=== PATIENT | male | born 1995 | race Caucasian/White ===

== ENCOUNTER 2021-04-19 15:10 | Emergency (ER) | payer SELFPAY ==
[2021-04-19 15:11] VITALS: BP 155/99; PULSE 107; RESP 16; TEMP 36.9; O2SAT 97; BMI 32.3
[2021-04-19 15:45] VITALS: BP 155/99; PULSE 107; RESP 16; TEMP 36.9; O2SAT 97; BMI 32.1
--- NOTE | 2021-04-19 16:20 | HMH.EDUTC ---
[facility] [place]ression: Vomiting and diarrhea Disposition: Home, Self-Care Condition on Discharge: Good Instructions: Diarrhea, Nausea and Vomiting-Adult Additional Instructions: Drink extra fluids with and between meals. If you have difficulty drinking, try very small amounts of water or suck on ice chips. ? Avoid fruit juices, as these do not replace minerals and can actually increase diarrhea. ? Children and adults can use sports drinks to replenish electrolytes. Younger children and infants should use products formulated for children, like oral rehydration solutions. ? Eat food in small amounts and let your stomach recover. ? Get lots of rest. You may feel tired or weak. ? No greasy or fried foods for the next 24-48 hours BRAT diet Bananas Rice Apples and [place] ? Make sure to drink plenty of liquids ? Return if needed ? Straight to ER if any life threatening symptoms ? Zofran as prescribed ? You was given an outpatient order for diarrhea panel, please collect specimen and bring back to outpatient lab then call back to the [facility] or follow up with family doctor for results ? Follow up with family doctor in the next 48-72 hours if no improvement or any worsening of symptoms Prescriptions: Dicyclomine HCl [Bentyl 10mg capsule] 10 mg PO TID PRN #15 cap PRN Reason: Cramping Prescription Printed Ondansetron [Zofran 4mg ODT] 4 mg PO TIDP PRN #12 tab PRN Reason: Nausea Prescription Printed Referrals: Provider,Referral, MD [Primary Care Provider] - As needed Forms: Work/School Release Time of Disposition: 16:48 Medical Decision Making - Malcolm Inquiry Pt receiving controlled substance: No Malcolm was queried for this patient: No Vital Signs: 04/19/21 15:11 04/19/21 15:45 Temperature 98.4 F 98.4 F Temperature Source Oral Oral Pulse Rate [Right Radial] 107 H 107 H Respiratory Rate 16 16 Blood Pressure [Right Arm] 155/99 H 155/99 H Blood Pressure Mean [Right Arm] 117 117 Blood Pressure Source [Right Arm] Automatic Cuff Automatic Cuff Blood Pressure Position [Right Arm] Standing Sitting 02 Sat by Pulse Oximetry 97 97 Oxygen Delivery Method Room Air Room Air Orders (Tests/Meds): ED MEDICATIONS Discontinued Medications Generic Name Dose Route Start Last Admin Trade Name Freq PRN Reason Stop Dose Admin Dicyclomine HCl 10 mg 04/19/21 16:21 04/19/21 16:32 Dicyclomine 10mg Capsule PO 04/19/21 16:22 10 mg ONCE ONE Administration Ondansetron HCl 4 mg 04/19/21 16:21 04/19/21 16:33 Ondansetron 4mg Odt SL 04/19/21 16:22 4 mg ONCE ONE Administration Medical Decision Narrative: Patient states that he is feeling much better after medication [facility] [place] - General Stated complaint: stomach pain Time Seen by Provider: 04/19/21 16:30 Mode of Arrival: Ambulatory Source of Information: Patient Limitations: No Limitations Description of Symptoms (Recalled from Triage Doc. by RN): PATIENT C/O ABDOMINAL PAIN , DIARRHEA AND VOMITING X 3 DAYS HEENT Symptoms (Recalled from RN notes): No Resp Symptoms (Recalled from RN notes): No Skin Symptoms (Recalled from RN notes): No MS Symptoms (Recalled from RN notes): No Functional Status (Recalled from RN notes): WNL - History of Present Illness Provider Complaint: Patient states that he has been having nausea and diarrhea States that he is not sure if he may have got food poisoned or if he may have a stomach bug States that today the diarrhea was better but still having some nausea so he came in to get checked - Related Data Previous Rx's Medication Instructions Recorded Dicyclomine HCl [Bentyl 10mg 10 mg PO TID PRN #15 cap 04/19/21 capsule] Ondansetron [Zofran 4mg ODT] 4 mg PO TIDP PRN #12 tab 04/19/21 Allergies Allergy/AdvReac Type Severity Reaction Status Date / Time No Known Allergies Allergy Verified 03/22/20 12:16 - Worker's Comp Is this a Worker's Comp case?: No [facility] History - Hepatitis A
[2021-04-19 16:48] VITALS: BP 155/99; PULSE 92; RESP 16; TEMP 36.9; O2SAT 97
== END 2021-04-19 17:00 | disposition home or self-care (01) ==
LOC: ER 15:25 → UTC 15:26
PROVIDERS: Emergency Provider Nurse Practitioner
DX: R11.10 Vomiting, unspecified (principal); R19.7 Diarrhea, unspecified
CPT/HCPCS: 99202; G0463

== ENCOUNTER 2022-01-12 14:10 | Emergency (ER) | payer OTHER, SELFPAY ==
[2022-01-12 14:55] VITALS: BP 130/91; PULSE 103; RESP 20; TEMP 37; O2SAT 98; BMI 31.8
--- NOTE | 2022-01-12 15:31 | HMH.EDUTC ---
[facility] [place] Disposition Clinical Impression: Viral upper respiratory tract infection with cough Disposition: Home, Self-Care Condition on Discharge: Good Instructions: Cough, DI for COVID-19 (Suspected or Confirmed ), DI for Viral Upper Respiratory Infection -- Adult Additional Instructions: *Monitor Temp, Over the counter Motrin or Tylenol as directed/as needed Tylenol every 4 hours and Motrin every 6 hours (as long as your family doctor has told you that you can take it) for fever or pain. and straight to ER if unable to lower temp less than 101.0 after medication given *Warm salt water gargles may help to soothe the throat *Throat Lozenges *Warm fluids like tea with honey may help to soothe the throat *Sleep elevated *Humidifier/Vaporizer Over the counter Robitussin may help with cough Follow up IMMEDIATELY for new or worsening symptoms or no Noticeable improvement over the next 48-72 hours. 911 for difficulty breathing or swallowing You were tested for today for COVID19 your test result should be back in the next 24-48 hours, you may Check your results on the [facility] My Health portal Make sure to take your Vitamins Vit. C Vit D and Zinc if you can take them Referrals: Provider,Referral, [Primary Care Provider] - As needed Forms: Work/School Release Medical Decision Making - Malcolm Inquiry Pt receiving controlled substance: No Malcolm was queried for this patient: No Vital Signs: 01/12/22 14:55 Temperature 98.6 F Temperature Source Oral Pulse Rate [Left Brachial] 103 H Respiratory Rate 20 Blood Pressure [Left Arm] 130/91 H Blood Pressure Mean [Left Arm] 104 Blood Pressure Source [Left Arm] Automatic Cuff Blood Pressure Position [Left Arm] Sitting 02 Sat by Pulse Oximetry 98 Oxygen Delivery Method Room Air Orders (Tests/Meds): ORDERS Category Date Time Status Covid-19 Nasal PCR ([facility]) Routine Lab 01/12/22 14:50 Received [facility] [place] HPI - General Stated complaint: covid test, cough, weakness, runny nose, fever Time Seen by Provider: 01/12/22 15:31 Mode of Arrival: Ambulatory Source of Information: Patient Limitations: No Limitations Description of Symptoms (Recalled from Triage Doc. by RN): PATIENT C/O COUGH, FEVER, FATIGUE, CHILLS, AND CONGESTION X 3 DAYS HEENT Symptoms (Recalled from RN notes): Yes Resp Symptoms (Recalled from RN notes): Yes Skin Symptoms (Recalled from RN notes): No MS Symptoms (Recalled from RN notes): No Functional Status (Recalled from RN notes): WNL - History of Present Illness Provider Complaint: Patient states that he feels like he may have COVID statse that he is having the same symptoms he had before with it Statse that he has been having bodyaches, chills, fever, nasal congestion and cough States that girlfriend is having same symptoms so he came in to get tested - Related Data Allergies Allergy/AdvReac Type Severity Reaction Status Date / Time No Known Allergies Allergy Verified 03/22/20 12:16 - Worker's Comp Is this a Worker's Comp case?: No [facility] History - Hepatitis A Screen Attestation statement:: This patient has been screened for Hepatitis A risk factors. I have reviewed the patient's past medical history: Yes - Social History Alcohol Intake: never Occupational Status: other ROS Obtained: Yes All systems reviewed & no additional complaints, Yes Systems reviewed as appropriate & no additional complaints - Constitutional Constitutional: Reports system reviewed and no additional complaints, except as docu, Reports body ache, Reports chills, Reports fatigue, Reports fever(s), Reports headache(s) - ENT Ears, Nose, Mouth, and Throat: Reports system reviewed and no additional complaints, except as docu, Reports nasal congestion, Reports nasal discharge - Cardiovascular Cardiovascular: Reports system reviewed and no additional complaints, except as docu - Respiratory Respiratory: Reports system reviewed and no additional complaints, except as docu, De
[2022-01-12 15:40] VITALS: BP 130/91; PULSE 103; RESP 20; TEMP 37; O2SAT 98
== END 2022-01-12 15:43 | disposition home or self-care (01) ==
PROVIDERS: Emergency Provider Nurse Practitioner
DX: J06.9 Acute upper respiratory infection, unspecified (principal); R05.9 Cough, unspecified; Z20.822 Contact with and (suspected) exposure to COVID-19; R09.81 Nasal congestion
CPT/HCPCS: 99212; C9803; G0463; U0003; U0005